=== PATIENT | female | born 1960 | race Caucasian/White ===

== ENCOUNTER → 2024-04-29 14:23 | Outpatient (REF) | payer OTHER, SELFPAY | LOC: HWWDC 14:23 | PROVIDERS: ATTENDING PHYSICIAN Nurse Practitioner Women's Health; FAMILY PHYSICIAN Physician Assistant Medical | DX: Z12.31 Encounter for screening mammogram for malignant neoplasm of breast (principal) | CPT/HCPCS: 77063; 77067 ==

== ENCOUNTER 2025-03-01 12:05 | Emergency (ER) | payer OTHER, SELFPAY ==
[2025-03-01 12:09] VITALS: BP 135/89
[2025-03-01 13:17] VITALS: BMI 30.8
--- NOTE | 2025-03-01 13:40 | ED.MUSCINJ ---
HPI-Injury
General
Chief Complaint: Musculo-Skeletal Complaint
Source: patient
Exam Limitations: none
Time Seen by Provider: 03/01/25 13:21
History of Present Illness-Injury
Initial Injury comments:
64-year-old female presents complaining of right segal pain and knee pain starting today. Her foot stepped in a hole and she twisted her body and she felt a pop in the lateral segal. She has a prior history of ORIF ankle. No other complaints at
this time
Past History
Past History
ED Past Medical History: Hypercholesterolemia
ED Past Surgical History: Cholecystectomy, and Orthopedic
Social History
Tobacco: Non-smoker
Personal:
Employment: Employed
Family History
Family History: CAD
Phy Exam
Physical Exam
Physical Exam:
General: Well-appearing female no acute respiratory distress
HEENT: Normal cephalic atraumatic
Musculoskeletal exam: Right leg is tender over the lateral segal lateral knee. The ankle is nontender. No deformities able to flex the knee and good motion of the right ankle
Injury Course
Orders/Labs/Results
Orders:
Orders
03/01/25 13:30
CR Leg Tibia/fibula Right 2 Vw Urgent
Comment:
Reason For Exam: pain
MDM/Problems Addressed
Differential Diagnosis Includes:
Right segal pain after twisting type injury. Consider sprain versus fracture.
X-rays of the right leg were ordered
*Pulse Oximetry
SaO2: 97
Oxygen Mode of Delivery: Room air
Patient hypoxic: no
*Critical Care Note
Total Time (30-74mins, 75-104mins- exclusive of procedures): Not Applicable
Update Note
Update Note:
X-rays demonstrate proximal fibular fracture. Patiently placed in knee immobilizer. She will be vies follow-up with orthopedics. There is no ankle tenderness on exam
ED Attending Note
-
Portions of this chart may have been created with voice recognition software.� Occasional wrong word or��sound alike� substitutions may have occurred due to the inherent limitations of voice recognition software.
Discharge Plan
Departure
Patient Disposition: Home (Routine Discharge)
Date of Disposition: 03/01/25
Time of Disposition: 14:16
Patient with high blood pressure during this ER visit?: No
Discharge Problem:
Fracture of fibula, proximal
Instructions: Knee Immobilizer (DC)
Prescriptions:
No Action
No Meds [No Current Medications]
0
Referrals:
Mariam Ventura PA [Family Provider, Family Practice]
Mike Rubalcava MD [Active, Orthopedics]
Activity Restrictions/Additional Instructions:
Use brace for support. Use Tylenol or ibuprofen for pain. Turn if worse otherwise follow-up with orthopedics
Interventions
Interventions:
*Risk Screen - Suicide Last Done: 03/01/25 12:09
*General Assessment Last Done: 03/01/25 13:17
*Neglect/Abuse Screening Last Done: 03/01/25 13:17
*ED- Fall Risk Assessment Last Done: 03/01/25 13:17
*ED COVID-19 Vaccine History Last Done: 03/01/25 13:17
ED-Musculoskeletal Assessment Last Done: 03/01/25 13:17
Discharge Date and Time
Print Language: BULGARIAN
--- NOTE | 2025-03-01 15:13 | EDRN ---
Reviewed discharge instructions with patient. Verbalized understanding. Patient demonstrated proper use of crutches. Taken to car in wheelchair.
[2025-03-01 15:18] VITALS: BP 151/92
== END 2025-03-01 15:05 | disposition home or self-care (01) ==
LOC: EMR 12:05
PROVIDERS: EMERGENCY PHYSICIAN Emergency Medicine; FAMILY PHYSICIAN Physician Assistant Medical
DX: S82.831A Other fracture of upper and lower end of right fibula, initial encounter for closed fracture (principal); E78.00 Pure hypercholesterolemia, unspecified; Z82.49 Family history of ischemic heart disease and other diseases of the circulatory system; W18.42XA Slipping, tripping and stumbling without falling due to stepping into hole or opening, initial encounter; X50.1XXA Overexertion from prolonged static or awkward postures, initial encounter
CPT/HCPCS: 99283; 73590